=== PATIENT | male | born 2000 | race Caucasian/White ===

== ENCOUNTER 2025-09-06 02:48 | Inpatient (IN) ==
[2025-09-06 03:16] LABS: Hematocrit (blood only) 38.6 % (42.0-52.0); Hemoglobin 12.9 g/dL (14.0-18.0); Immature Granulocytes # (auto) 0.05 K/uL (0.01-0.20); Immature Granulocytes % (auto) 0.7 %; Mean Corpuscular Hemoglobin 28.6 pg (25.0-34.0); Mean Corpuscular Volume 85.6 fL (80.0-100.0); Platelet Count 232 K/uL (130-400); RDW Standard Deviation 42.1 fL (36.4-46.3); Red Blood Count 4.51 M/uL (4.70-6.10); White Blood Count 7.31 K/ul (4.8-10.8)
[2025-09-06] MEDS: OPTIRAY 320 100ml IV ONE (03:18)
[2025-09-06 03:25] LABS: Alanine Aminotransferase 18 U/L (7-52); Albumin Globulin Ratio 1.9 (0.9-2); Albumin Level 4.6 gm/dl (3.4-5.0); Alkaline Phosphatase 64 U/L (34-104); Anion Gap 9 (3-11); Bilirubin,Total 0.3 mg/dl (0.2-1.0); Blood Urea Nitrogen 19 mg/dl (6-23); Calcium 9.6 mg/dl (8.6-10.3); Carbon Dioxide 23 mmol/L (21-32); Chloride 108 mmol/L (98-107); Creatinine Clr Calc Pharmacy 93.3 ml/min; Globulin 2.4 gm/dl (2.5-4.0); Glucose 96 mg/dl (70-99(Fasting)); Lipase 31 U/L (11-82); Potassium 3.7 mmol/L (3.5-5.1); Sodium 140 mmol/L (136-145); Total Protein 7.0 gm/dl (6.0-8.3)
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
--- NOTE | 2025-09-06 03:50 | XRay Report ---
EXAM: XR chest 1V portable CLINICAL HISTORY: Trauma TECHNIQUE: An X-ray image of the chest was obtained in the AP projection. COMPARISON: None. FINDINGS: The lungs are clear and well expanded, with no pulmonary infiltrate or pleural effusion. The cardiomediastinal silhouette is within normal limits. There is no acute osseous abnormality. IMPRESSION: 1. No acute cardiopulmonary disease. Electronically signed by Juan Fay 09-06-2025 03:49 AM
[2025-09-06 03:53] LABS: INR 1.0 (0.9-1.1); Partial Thromboplastin Time 25 Seconds (21-31); Prothrombin Time 10.3 Seconds (9.0-12.0)
--- NOTE | 2025-09-06 03:58 | CT Scan Report ---
EXAM: CT head/brain wo con CLINICAL HISTORY: Trauma TECHNIQUE: Multiple axial images were obtained from the skull base to the vertex without contrast. CT scan was performed according to ALARA (as low as reasonably achievable). COMPARISON: None. FINDINGS: The brain demonstrates normal morphology, attenuation, and volume for age. There is no evidence of space-occupying lesion, hemorrhage, edema, mass effect, midline shift, extra-axial collection, or hydrocephalus. The ventricles, sulci, and basal cisterns are symmetric and normal in size and configuration. Kulkarni-white matter differentiation is preserved. The visualized paranasal sinuses and mastoid air cells are well aerated. The orbital contents are within normal limits. Bony structures are intact. IMPRESSION: 1. No evidence of acute intracranial abnormality is demonstrated. Electronically signed by Juan Fay 09-06-2025 03:58 AM
--- NOTE | 2025-09-06 04:01 | CT Scan Report ---
EXAM: CT cervical spine wo con CLINICAL HISTORY: Trauma TECHNIQUE: Computed tomography of the cervical spine was performed without intravenous contrast. Contiguous axial images were obtained from the skull base to T2, with sagittal and coronal reformatted images reconstructed from the axial data. CT scan was performed according to ALARA (as low as reasonably achievable). COMPARISON: None. FINDINGS: The normal cervical lordotic curvature is maintained. Cervical vertebral bodies are normal in height and alignment, with no evidence of fracture or subluxation. The lateral masses of C1 are symmetrical, and the dens is intact. Prevertebral soft tissues are not widened. The remaining suprahyoid and infrahyoid soft tissues in the neck are unremarkable. C2-C3: No disc bulge, mass effect on the cord, or neuroforaminal narrowing. C3-C4: No disc bulge, mass effect on the cord, or neuroforaminal narrowing. C4-C5: No disc bulge, mass effect on the cord, or neuroforaminal narrowing. C5-C6: No disc bulge, mass effect on the cord, or neuroforaminal narrowing. C6-C7: No disc bulge, mass effect on the cord, or neuroforaminal narrowing. C7-T1: No disc bulge, mass effect on the cord, or neuroforaminal narrowing. The thyroid gland appears unremarkable. IMPRESSION: 1. No acute fracture or subluxation in the cervical spine. Electronically signed by Juan Fay 09-06-2025 04:01 AM
--- NOTE | 2025-09-06 04:22 | CT Scan Report ---
EXAM: CT chest diagnostic w con CLINICAL HISTORY: Trauma TECHNIQUE: Contiguous axial images were obtained from the base of the neck through the upper abdomen following intravenous administration of contrast material. If intravenous contrast material had not been administered, the likelihood of detecting abnormalities relevant to the patient's condition would have been substantially decreased. In addition, sagittal and coronal reconstructions were performed. The CT scan was performed according to ALARA (as low as reasonably achievable). COMPARISON: None. FINDINGS: The lungs are clear, with no focal areas of consolidation. No pulmonary nodules are seen. The central airways are patent. There are no pleural effusions. No pneumothorax is seen. No axillary, hilar, or mediastinal adenopathy is identified. The visualized thyroid is unremarkable. The heart, aorta, and pulmonary arteries are of normal size and configuration. No pericardial effusion is identified. The imaged portions of the upper abdomen are unremarkable. No aggressive-appearing osseous lesions are identified. IMPRESSION: No significant abnormality detected. Electronically signed by Juan Fay 09-06-2025 04:22 AM
--- NOTE | 2025-09-06 04:32 | CT Scan Report ---
EXAM: CT abd pelvis IV con only CLINICAL HISTORY: Trauma TECHNIQUE: Contiguous axial images were obtained from the level of the diaphragm to the pubic symphysis with intravenous contrast. Coronal and sagittal reconstructions were likewise performed and indicated to increase the sensitivity for detecting clinically relevant pathology. If intravenous contrast material had not been administered, the likelihood of detecting abnormalities relevant to the patient's condition would have been substantially decreased. A CT scan was performed according to ALARA (as low as reasonably achievable). COMPARISON: None. FINDINGS: The visualized lung bases are clear. The liver is normal in size and attenuation. No focal liver lesions are seen. There is no intra- or extrahepatic biliary ductal dilatation. Hepatic vasculature is patent. The gallbladder is present. The spleen, pancreas, and adrenal glands are unremarkable. The kidneys are normal in size and attenuation. There is no hydronephrosis or perinephric fat stranding. No renal calculi or renal masses are identified. The ureters are normal in caliber, and no ureteral calculi are seen. The bladder is normal in contour. Pelvic viscera are unremarkable. No focal or diffuse bowel wall thickening or evidence of bowel obstruction is identified. No imaging evidence of appendicitis. Abdominal and pelvic vasculature is patent. No adenopathy or fluid collections are seen. No aggressive-appearing osseous lesions are identified. IMPRESSION: No significant abnormality detected. Electronically signed by Juan Fay 09-06-2025 04:31 AM
[2025-09-06 05:03] LABS: Appearance Urine Clear (Clear); Glucose Urine UA Negative (Negative)
[2025-09-06 05:49] LABS: Amphetamines+Metham, Urine Neg (Neg); MDMA (Ecstacy), Urine Neg (Neg); Marijuana, Urine Neg (Neg)
[2025-09-06] MEDS ORDERED: MAGNESIUM HYDROXIDE SUSP 30 ML UDC PO PRN (10:23)
[2025-09-06] MEDS ORDERED: ALUMINUM/MAGNESIUM SUSP 30 ML UDC PO PRN (10:23)
[2025-09-06] MEDS ORDERED: BISMUTH SUBSALICYLATE 262 MG CHEW PO PRN (10:23)
[2025-09-06] MEDS ORDERED: SODIUM CHLORIDE 0.65% NA SOLN 45 ML (OCEAN) PRN (10:23)
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
[2025-09-06] MEDS ORDERED: IBUPROFEN 600 MG TAB PO PRN (16:54)
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
--- NOTE | 2025-09-07 09:42 | Electrocardiogram Report ---
Test Reason : Blood Pressure : */* mmHG Vent. Rate : 75 BPM Atrial Rate : 75 BPM P-R Int : 172 ms QRS Dur : 90 ms QT Int : 382 ms P-R-T Axes : 67 83 44 degrees QTcB Int : 426 ms Normal sinus rhythm Normal ECG No previous ECGs available Confirmed by Ezekiel Song ([id number]) on 09/07/2025 9:41:49 AM Referred By: REFERRED SELF Confirmed By: Ezekiel Song
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
== END 2025-09-09 13:44 | disposition home or self-care (01) | DRG 885 ==
LOC: ED 02:48 → 3S 10:23
DX: V89.2XXA Person injured in unspecified motor-vehicle accident, traffic, initial encounter; F17.290 Nicotine dependence, other tobacco product, uncomplicated; F32.2 Major depressive disorder, single episode, severe without psychotic features; F10.929 Alcohol use, unspecified with intoxication, unspecified; F40.10 Social phobia, unspecified; R45.851 Suicidal ideations; Z88.6 Allergy status to analgesic agent; Y90.6 Blood alcohol level of 120-199 mg/100 ml; F41.1 Generalized anxiety disorder